=== PATIENT | female | born 1955 | race Caucasian/White ===

== ENCOUNTER → 2019-11-10 | Outpatient (CLI) | payer SELFPAY ==
[2019-11-11 14:21] LABS: G. vaginalis (DNA Probe) Negative (NEGATIVE); T. vaginalis (DNA Probe) Negative (NEGATIVE)
[2019-11-11 14:22] LABS: Candida species (DNA Probe) Positive (NEGATIVE)
[2019-11-14 15:09] LABS: HPV 16 Negative (Negative); HPV 18 Negative (Negative); HPV OTHER HR TYPES Negative (Negative)
== END | disposition home or self-care (01) ==
LOC: LAB SHORT 11:00 → PLD 11:00
PROVIDERS: Obstetrics & Gynecology
DX: Z01.419 Encounter for gynecological examination (general) (routine) without abnormal findings (principal); N76.0 Acute vaginitis
CPT/HCPCS: 87480; 87510; 87624; 87660; G0123

== ENCOUNTER → 2023-07-08 | Outpatient (CLI) | payer MEDICARE ==
[~2023-07-08] MED LIST: BIEST/PROG/TEST TOP
[2023-07-14 15:46] LABS: HPV HIGH RISK BY TMA Not Detected; HPV SOURCE Cervical
== END ==
LOC: LAB SHORT 19:08 → LAB 19:08
PROVIDERS: Obstetrics & Gynecology
DX: Z01.419 Encounter for gynecological examination (general) (routine) without abnormal findings (principal)
CPT/HCPCS: 87624; G0123